=== PATIENT | male | born 1960 | race Caucasian/White ===

== ENCOUNTER 2022-05-14 09:39 | Inpatient (IN) ==
[2022-05-08 13:39] LABS: Basophils # (Auto) 0.02 K/mcL (0.00-0.30); Basophils % (Auto) 0.4 % (0.0-2.0); Eosinophils % (Auto) 1.8 % (0.0-7.0); Hematocrit 40.3 % (40.1-51.0); Hemoglobin 12.8 g/dL (13.7-17.5); Lymphocytes # (Auto) 0.73 K/mcL (1.50-4.80); Lymphocytes % (Auto) 13.1 % (15.5-49.0); Mean Cell Volume 97.3 fL (80.0-100.0); Mean Corpuscular HGB Conc 31.8 g/dL (31.0-36.0); Mean Platelet Volume 9.8 fL (7.4-10.4); Monocytes # (Auto) 0.46 K/mcL (0.10-0.90); Monocytes % (Auto) 8.2 % (1.0-12.0); Neutrophils % (Auto) 76.3 % (38.0-78.0); Platelet Count 192 K/mcL (140-440); RBC 4.14 M/mcL (4.63-6.08); Red Cell Distribution Width 12.7 % (11.5-14.5); WBC 5.6 K/mcL (4.5-11.0)
[2022-05-08 13:42] LABS: INR 0.9 (0.9-1.1); Prothrombin Time 13.1 sec (11.9-14.5)
[2022-05-08 13:48] LABS: Blood Urea Nitrogen 27 mg/dL (6-20); Calcium 9.4 mg/dL (8.6-10.4); Carbon Dioxide 25 mmol/L (22-30); Chloride 101 mmol/L (96-108); Glomerular Filtration Rate 30; Glucose 95 mg/dL (70-105)
[2022-05-08 14:15] LABS: Estimated Average Glucose(eAG) 88 mg/dL; Hemoglobin A1C 4.7 % Hgb (4.0-6.0)
--- NOTE | 2022-05-10 07:47 | EKG ---
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
[~2022-05-14 09:39] MED LIST: IPRATROPIUM/ALBUTEROL 3 ML AMPUL.NEB NEB PRN; SCOPOLAMINE 1 PATCH PATCH TOPICAL PRN; ceFAZolin 3 GM in DEXTROSE 5% IN WATER 50 ML IV SCH
--- NOTE | 2022-05-14 13:37 | General Surg History&Physical ---
HPI History of Present Illness Patient information: Note initiated : 05/14/22 at 1:35 pm Service Date, if different from initiated Date: [] Patient: Juanjose Patel 62 y/o M admitted on 05/14/22 for Robotic Assisted Hiatal Hernia Repair with Nicholas. Chief Complaint: [] Chief complaint: Patient presents for scheduled robotic assisted hiatal hernia repair History of present illness: This is a pleasant 61-year-old gentleman with a long history of a hiatal hernia. In the past he has been worked up with an EGD, diagnosed with H. pylori and placed on H. pylori treatment. He also had ulcers identified which were taken care of with medication. He reports that he has had an esophageal swallow in the past and is not sure if he has had manometry or pH probe. He recently underwent a CT scan which showed that his hiatal hernia was larger than it has been in the past. He reports over the last several years the pain and pressure in his chest is gotten worse, he gets acid reflux up to the level of the pharynx and is here to discuss possible surgical repair. He denies any fevers chills nausea or vomiting at this time. Patient is here today to follow-up EGD which showed a large hiatal hernia with Geremias ulcers and manometry which showed decent drainage of esophagus with good motility. No changes since patient was seen in clinic [facility] All Active Problems Anemia in stage 4 chronic kidney disease (Chronic) Bronchitis (Chronic) Subconjunctival hemorrhage (Chronic) Blood pressure decreased (Chronic) Bradycardia (Chronic) CKD (chronic kidney disease), stage IV (Chronic) Umbilical hernia (Chronic) Ventral hernia (Chronic) Pneumonia (Chronic) MANSFIELD (dyspnea on exertion) (Chronic) SOB (shortness of breath) (Chronic) Right hip pain (Chronic) Generalized anxiety disorder (Chronic) Methamphetamine dependence (Chronic) Tobacco dependence (Chronic) Hemoptysis (Chronic) Pain in right knee (Chronic) Wart (Chronic) Gout (Chronic) Anemia (Chronic) Alcohol dependence (Chronic) Legal problem (Chronic) Primary erectile dysfunction (Chronic) Plantar wart (Chronic) Hammer toe (Chronic) Pain in right foot (Chronic) Onychomycosis (Chronic) Ankle pain (Chronic) Essential hypertension (Chronic) Diverticular disease of colon (Chronic 05/16/14) Polyp of colon (Chronic) Nocturia (Chronic) Insomnia (Chronic) Herpes simplex (Chronic) Chronic hepatitis C (Chronic) Gouty arthropathy (Chronic) GERD (gastroesophageal reflux disease) (Chronic) Gastritis (Chronic) Esophagitis (Chronic) Mild depression (Chronic) PTSD (post-traumatic stress disorder) (Chronic) Pes planus (Chronic) Idiopathic peripheral neuropathy (Chronic) Hyperlipidemia (Chronic) Mild edema (Chronic) Hip joint stiffness, bilateral (Chronic) Arthritis (Chronic) Vitamin D deficiency (Chronic) Renal osteodystrophy (Chronic) Erectile dysfunction (Chronic) Skin lesion (Chronic) Nicotine dependence (Chronic) Other stimulant dependence, in remission (Chronic) Actinic keratosis (Chronic) Low back pain (Chronic) 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) Other specified abdominal hernia with obstruction, without gangrene (Chronic) Other idiopathic peripheral autonomic neuropathy (Chronic) Other seasonal allergic rhinitis (Chronic) Other specified depressive episodes (Chronic) Other viral warts (Chronic) Pain in unspecified ankle and joints of unspecified foot (Chronic) Pain in unspecified hip (Chronic) Problems related to other legal circumstances (Chronic) Tinea unguium (Chronic) Hyperparathyroidism (Chronic) Localized edema due to fluid overload (Chronic) BPH loc w urin obs/LUTS (Acute) Urinary retention with incomplete bladder emptying (Acute) Diaphragmatic hernia (Chronic) Scrotal skin lesion (Acute) Medical History Actinic keratosis Alcohol dependence Anemia Ankle pain Arthritis Blood pressure decreased Bradycardia Chronic hepatitis C CKD (chronic kidney disease), stage IV Diaphragmatic hernia Diverticular disease of colon (05/16/14) MANSFIELD (dyspnea on exertion) Erectile dysfunction Esophagitis Grade B Essential hypertension Gastritis Generalized anxiety disorder GERD (gastroesophageal reflux disease) Gout Gouty arthropathy Hammer toe Left foot, acquired Hemoptysis Herpes simplex Hip joint stiffness, bilateral Hyperlipidemia Idiopathic peripheral neuropathy Insomnia Legal problem Low back pain Methamphetamine dependence Mild depression Mild edema lower extremities 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 Nicotine dependence Nocturia Onychomycosis Other idiopathic peripheral autonomic neuropathy Other seasonal allergic rhinitis Other specified abdominal hernia with obstruction, without gangrene Other specified depressive episodes Other stimulant dependence, in remission Other viral warts Pain in right foot Pain in right knee Pain in unspecified ankle and joints of unspecified foot Pain in unspecified hip Pes planus Plantar wart Pneumonia Polyp of colon 05/20/14 hyperplastic polyp Primary erectile dysfunction Doing adequately on daily tadalafil with bolus sildenafil Problems related to other legal circumstances PTSD (post-traumatic stress disorder) Renal osteodystrophy Right hip pain Skin lesion Recurrent questionable lesion left inner groin, will schedule for biopsy SOB (shortness of breath) Subconjunctival hemorrhage Tinea unguium Tobacco dependence Umbilical hernia Ventral hernia Vitamin D deficiency Wart Surgical History History of bunionectomy of right great toe History of colonoscopy (~2018) 2013 History of esophagogastroduodenoscopy (EGD) (04/12/20) History of foot surgery right x2 - right collapsed arch, left hallux fusion History of hammer toe correction right History of open heart surgery (~2017) 2017 aortic valve History of open reduction and internal fixation (ORIF) procedure left forearm; right hip History of shoulder surgery bilateral History of surgery on arm left forearm plating History of umbilical hernia repair Family History Grandfather Lung cancer Hypertension Social History marital status: education level: college 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, 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 branch: [employer] smoking status: Former smoker alcohol intake frequency: does not drink substance use type: does not use MEDS/ALLERGIES Home Medications and Allergies Home Medications Medication Instructions Recorded Confirmed Type albuterol sulfate 90 mcg/actuation 1 puff inhalation QID PRN ALLERGIES 12/20/20 05/14/22 History aerosol inhaler aspirin 81 mg tablet,delayed 81 mg PO QDAY 12/20/20 05/14/22 History release duloxetine 30 mg capsule,delayed 30 mg PO QDAY 12/20/20 05/14/22 History release gabapentin 600 mg tablet 600 mg PO TID 12/20/20 05/14/22 History losartan 50 mg tablet 50 mg PO QDAY 12/20/20 05/14/22 History omeprazole 20 mg capsule,delayed 20 mg PO BID 12/20/20 05/14/22 History release ferrous gluconate 324 mg (37.5 mg 324 mg PO QDAY 03/29/21 05/14/22 History iron) tablet fluticasone propionate 50 1 spray intranasal BID PRN 03/29/21 05/14/22 History mcg/actuation nasal ALLERGIES spray,suspension multivitamin with minerals 1 cap PO QDAY 03/29/21 05/14/22 History furosemide 20 mg tablet (Lasix) 20 mg PO QAM 05/04/21 05/14/22 History nortriptyline 25 mg capsule 25 mg PO QHS 05/04/21 05/14/22 History amlodipine 5 mg tablet 5 mg PO QDAY #90 tabs 08/06/21 05/14/22 Rx metoprolol succinate 50 mg 25 mg PO QDAY 08/06/21 05/14/22 History tablet,extended release 24 hr empagliflozin 10 mg tablet 10 mg PO QAM #90 tabs 10/22/21 05/14/22 Rx tamsulosin 0.4 mg capsule 0.4 mg PO QHS #90 caps 01/01/22 05/14/22 Rx trazodone 100 mg tablet 100 mg PO QHS 01/28/22 05/14/22 History apixaban [Eliquis] 5 mg PO BID 04/04/22 05/14/22 History allopurinol 100 mg tablet 100 mg PO QDAY 05/08/22 05/14/22 History atorvastatin 10 mg tablet 10 mg PO QDAY 05/08/22 05/14/22 History cholecalciferol (vitamin D3) 50 50 mcg PO QDAY 05/08/22 05/14/22 History mcg (2,000 unit) tablet cyclobenzaprine 10 mg tablet 10 mg PO TIDP PRN Pain 05/08/22 05/14/22 History diltiazem HCl 120 mg 120 mg PO QDAY 05/08/22 05/14/22 History capsule,extended release 24 hr docosahexaenoic acid (dha)-epa 1 cap PO BID 05/08/22 05/14/22 History capsule omega-3 fatty acids-vitamin E 1 cap PO BID 05/08/22 05/14/22 History 1,000 mg capsule sildenafil 100 mg tablet 100 mg PO QDAY PRN Erectile 05/08/22 05/14/22 History Dysfunction sucralfate 1 gram tablet 2 g PO BID 05/08/22 05/14/22 History tadalafil 5 mg tablet 5 mg PO PRN PRN Sexual Activity 05/08/22 05/14/22 History Allergies Allergy/AdvReac Type Severity Reaction Status Date / Time vancomycin Allergy Severe Redness of Verified 04/04/22 09:47 Skin lisinopril Allergy Unknown Unknown Verified 04/04/22 09:47 Physical Examination Vital Signs Vital signs: Temp Pulse BP Pulse Ox O2 Del Method 98.4 F 80 148/89 97 05/14/22 11:00 05/14/22 11:00 05/14/22 11:00 05/14/22 11:00 05/14/22 11:00 General physical appearance General physical exam: well developed, well nourished and no distress Eyes Eye exam: PERRL and normal ocular movement ENT ENT exam: normal pinna, normal nares, normal mucosa, no hearing loss and no congestion Head Head exam IM: Present atraumatic and normocephalic Neck Neck exam: no masses, no bruits, trachea midline, no lymphadenopathy and no venous distension Cardiovascular Cardiovascular exam IM: Present normal rate and rhythm Respiratory Respiratory exam: normal expansion, normal respiratory effort, clear to percussion and clear to auscultation Abdomen Abdomen: Present soft, non tender and bowel sounds Hernia: Present none Genitourinary Genitourinary (Male): Present normal penis with no external lesions Rectum Rectum: Present normal sphincter tone, no hemorrhoids, no tenderness, no masses and no bleeding Integumentary Integumentary: Present no rash, no growths and no abnormal pigmentation Neurologic Neurologic: Present normal coordination and normal sensation Musculoskeletal Musculoskeletal: Present normal gait and normal posture Psychiatric Psychiatric: Present oriented to time, oriented to person, oriented to place, speech is normal and memory intact Results Labs Result diagrams: 05/08/22 10:10 05/08/22 10:10 Labs: All other labs normal. A/P Assessment and plan (1) GERD (gastroesophageal reflux disease): Status: Chronic (2) Diaphragmatic hernia: Status: Chronic Plan Patient is here for robotic assisted Nicholas fundoplication. Postoperative diet, details of procedure reviewed with patient. All patient's questions are answered and he desires to continue. Time Spent With Patient Time: Total time spent is greater than 50% in coordination of care (as documented) at patient's floor/unit and/or counseling patient:
[2022-05-14] MEDS ORDERED: fentaNYL 100 MCG/2 ML VIAL IV ONE (14:00)
[2022-05-14] MEDS ORDERED: KETAMINE 50 MG/ML Syringe (ANEST) IV ONE (14:00)
[2022-05-14] MEDS ORDERED: ROCURONIUM 10 MG/ML ML IV ONE (14:00)
[2022-05-14] MEDS ORDERED: MIDAZOLAM 5 MG/5 ML VIAL ONE (14:00)
[2022-05-14] MEDS ORDERED: SUGAMMADEX SODIUM 200 MG/2 ML VIAL IV ONE (14:00)
[2022-05-14] MEDS ORDERED: DEXAMETHASONE 10 MG/ML VIAL ONE (14:00)
[2022-05-14] MEDS ORDERED: ONDANSETRON 4 MG/2 ML VIAL ONE (14:00)
[2022-05-14] MEDS ORDERED: METOPROLOL TARTRATE 5 MG/5 ML VIAL IV ONE (14:00)
[2022-05-14] MEDS ORDERED: PROPOFOL 200 MG/20 ML VIAL IV ONE (14:00)
[2022-05-14] MEDS ORDERED: LIDOCAINE HCL/PF 100 MG/5 ML SYRINGE IV ONE (14:00)
[2022-05-14] MEDS ORDERED: GLYCOPYRROLATE 0.2 MG/ML VIAL IV ONE (14:00)
[2022-05-14] MEDS ORDERED: METHOCARBAMOL 1,000 MG/10 ML VIAL IV PRN (15:19)
[2022-05-14] MEDS ORDERED: fentaNYL 100 MCG/2 ML VIAL IV PRN (15:19)
[2022-05-14] MEDS ORDERED: METOCLOPRAMIDE 10 MG/2 ML VIAL IV PRN (15:19)
[2022-05-14] MEDS ORDERED: IPRATROPIUM/ALBUTEROL 3 ML AMPUL.NEB NEB PRN (15:19)
[2022-05-14] MEDS ORDERED: PROMETHAZINE 25 MG/ML VIAL IV PRN (15:19)
[2022-05-14] MEDS ORDERED: ONDANSETRON 4 MG/2 ML VIAL IV PRN ×2 (15:19→15:33)
[2022-05-14] MEDS ORDERED: HYDROmorphone 0.5 MG/0.5 ML SYRINGE IV PRN (15:19)
[2022-05-14] MEDS ORDERED: LACTATED RINGERS 250 ML IV PRN (15:19)
[2022-05-14] MEDS ORDERED: ACETAMINOPHEN 1,000 MG/100 ML BAG IV ONE (15:19)
[2022-05-14] MEDS ORDERED: MEPERIDINE 25 MG/ML VIAL IV PRN (15:19)
[2022-05-14] MEDS ORDERED: KETOROLAC 30 MG/ML VIAL IV PRN (15:19)
[2022-05-14] MEDS ORDERED: LABETALOL 5 MG/ML ML IV PRN (15:19)
[2022-05-14] MEDS ORDERED: METOPROLOL TARTRATE 5 MG/5 ML VIAL IV PRN (15:19)
[2022-05-14] MEDS ORDERED: NALOXONE HCL 0.4 MG/ML VIAL IV PRN (15:19)
[2022-05-14] MEDS ORDERED: LACTATED RINGERS 1,000 ML IV SCH (15:30)
[2022-05-14] MEDS ORDERED: IBUPROFEN 600 MG TABLET PO PRN (15:33)
[2022-05-14] MEDS ORDERED: ACETAMINOPHEN 325 MG TABLET PO PRN (15:33)
--- NOTE | 2022-05-14 15:33 | Operative Note ---
Brief Operative Note Date of procedure: 05/14/22 Pre-op diagnosis: Large hiatal hernia, gastroesophageal reflux disease Post-op diagnosis: same Procedure: Attempted hiatal hernia repair robotic assisted Grafts/Implants: No Anesthesia: GETA Findings: Difficult anatomy, unable to reduce hiatal hernia, operation stopped. Complications: none Surgeon: Ori Gilmore Estimated blood loss (cc): 25 Specimens Removed/Pathology: none sent Condition: stable Disposition: PACU Operative Note Operative Note: After all risk benefits and alternatives to the procedure were discussed with the patient at length he verbalized understanding and desire to continue with the procedure. Patient was taken main operating placed upon operative table. General esthesia was induced over endotracheal tube. Patient's prepped and draped in standard sterile surgical fashion. Surgical timeout was taken to verify patient and procedure being performed. 1% lidocaine half percent Marcaine was used for local anesthesia. A right upper quadrant incision was made in the abdominal cavity was entered under direct vision using an 8 mm Optiview trocar. Abdominal cavity was insufflated with carbon oxide vision inspection revealed no injuries. Visual inspection revealed a large amount of adhesions to the midline from a prior open mesh hernia repair. 2 left upper quadrant 8 mm trochars were able to be placed under direct vision and then the adhesions were taken down to allow an additional midline 8 mm trocar. 1 final 5 mm right upper quadrant trochars were then placed under direct vision. Patient was placed in a head up position. A liver retractor was placed to lift the liver off the hiatus and the da Kalin robot was docked in the standard fashion. Attention was turned to the hiatus where the gastro esophageal ligament was opened and this was dissected down to the right crura, at this point retraction became difficult, and I was unable to reduce the stomach back into the abdomen, NG tube was unable to be passed into the intra-abdominal stomach, multiple attempts were made to reduce the stomach and get to a place where they occur could be dissected safely. After multiple attempts I felt that I could not safely progress with the crural dissection and decided to stop the operation at this point. 1 retraction tear in the stomach was repaired with interrupted 3-0 Vicryl sutures and then the da Kalin robot was undocked after hemostasis was assured. CO2 and trochars and the liver retractor were all removed under direct vision. Trocar sites were inspected for hemostasis. Skin edges were then closed with interrupted 4 Monocryl sutures and skin glue dressings were applied. Patient was awakened from general anesthesia transferred postanesthesia care unit awake alert in good condition.
[2022-05-14] MEDS ORDERED: LIDOCAINE 1% 20 ML, BUPIVACAINE W/EPI 0.5% 20 ML SQ ONE (15:56)
[2022-05-14] MEDS ORDERED: SENNOSIDES 1 TABLET PO SCH (21:00)
[2022-05-14] MEDS: 0.9 % SODIUM CHLORIDE 10 ML SYRINGE IV SCH (21:08)
[2022-05-14] MEDS: DOCUSATE SODIUM 100 MG CAPSULE PO SCH (21:19)
[2022-05-14] MEDS ORDERED: GABAPENTIN 300 MG CAPSULE PO ONE (21:45)
[2022-05-14] MEDS: oxyCODONE HCL 5 MG TABLET PO PRN (21:46)
[2022-05-14] MEDS ORDERED: traZODone HCL 100 MG TABLET PO SCH (21:50)
[2022-05-14] MEDS ORDERED: traZODone HCL 50 MG TABLET ONE (21:55)
[2022-05-15] MEDS: oxyCODONE HCL 5 MG TABLET PO PRN (02:19)
[2022-05-15] MEDS: 0.9 % SODIUM CHLORIDE 10 ML SYRINGE IV SCH (05:37)
[2022-05-15] MEDS: DOCUSATE SODIUM 100 MG CAPSULE PO SCH (08:12)
--- NOTE | 2022-05-15 08:24 | Discharge Summary ---
Discharge Provider Provider IMPORTANT FOLLOW-UP INFORMATION FOR PCP: Patient information: Note initiated : 05/15/22 at 8:24 am Service Date, if different from initiated Date: [] Patient: Juanjose Patel 62 y/o M admitted on 05/14/22 for Robotic Assisted Hiatal Hernia Repair with Nicholas. Chief Complaint: [] Date of admission: 05/14/22 09:39 Discharge date: 05/15/22 Primary care physician: Martinez Davis COURSE Hospital Course Hospital course: Patient was admitted for robotic assisted hiatal hernia repair, the surgery was unsuccessful. Postoperatively patient is done well with minimal pain. Discharge diagnosis: Status post robotic assisted exploration. Time Spent with Patient Time attestation: Total time spent providing and/or coordinating discharge services: Time spent: Less than 30 minutes Physical Examination Vital Signs Vital signs: Temp Pulse Resp BP Pulse Ox O2 Del Method O2 Flow Rate 97.6 F 75 20 148/88 90 2 05/15/22 07:22 05/15/22 07:22 05/15/22 07:22 05/15/22 07:22 05/15/22 07:22 05/15/22 07:22 05/15/22 07:20 Discharge Plan Patient/Caregiver Discharge Instructions Activity: increase activity as tolerated Diet: Regular Diet Activity Restrictions/Additional Instructions: Resume activity as tolerated. May resume showering as tolerated. Prescriptions: Continued empagliflozin 10 mg tablet 10 mg PO QAM Qty: 90 3RF aspirin 81 mg tablet,delayed release (DR/EC) 81 mg PO QDAY duloxetine 30 mg capsule,delayed release(DR/EC) 30 mg PO QDAY losartan 50 mg tablet 50 mg PO QDAY albuterol sulfate 90 mcg/actuation HFA aerosol inhaler 1 puff inhalation QID PRN (Reason: ALLERGIES) ferrous gluconate 324 mg (37.5 mg iron) tablet 324 mg PO QDAY fluticasone propionate 50 mcg/actuation spray,suspension 1 spray intranasal BID PRN (Reason: ALLERGIES) Rx Instructions: administer into each nostril multivitamin with minerals Capsule 1 cap PO QDAY apixaban [Eliquis] 5 mg PO BID nortriptyline 25 mg capsule 25 mg PO QHS amlodipine 5 mg tablet 5 mg PO QDAY Qty: 90 3RF gabapentin 600 mg tablet 600 mg PO TID omeprazole 20 mg capsule,delayed release(DR/EC) 20 mg PO BID furosemide [Lasix] 20 mg tablet 20 mg PO QAM metoprolol succinate 50 mg tablet extended release 24 hr 50 mg PO QDAY trazodone 100 mg Tablet 100 mg PO QHS allopurinol 100 mg Tablet 100 mg PO QDAY atorvastatin 10 mg Tablet 10 mg PO QDAY cyclobenzaprine 10 mg Tablet 10 mg PO TIDP PRN (Reason: Pain) sucralfate 1 gram Tablet 2 g PO BID diltiazem HCl 120 mg Capsule,Extended Release 24hr 120 mg PO QDAY docosahexaenoic acid-epa Capsule 1 cap PO BID cholecalciferol (vitamin D3) 50 mcg (2,000 unit) Tablet 50 mcg PO QDAY tadalafil 5 mg tablet 5 mg PO PRN PRN (Reason: Sexual Activity) sildenafil 100 mg Tablet 100 mg PO DAILYP PRN (Reason: Erectile Dysfunction) Rx Instructions: administer 30 minutes to 4 hours before activity omega-3 fatty acids-vitamin E 1,000 mg Capsule 1 cap PO BID tamsulosin 0.4 mg capsule 0.4 mg PO QHS Qty: 90 3RF Follow Up Plan Follow up with: Ori Gilmore MD [Physician] - 05/22/22 11:15 am Patient Disposition: Home, Self-Care Discharge Orders: Discharge Order (Routine); Ordered 05/15/22 Ordered By: Ori Gilmore Pending Pending Pending: Resuscitation Status Resuscitate (Full Code) Diet Regular Diet Start FriMay 15 08 Acetaminophen (Acetaminophen 325 Mg Tablet) 650 mg PO Q6HP PRN; Protocol PRN Reason: Per Pain Protocol/Fever > 101 Last Admin: 05/14/22 23:27 Dose: 650 mg Documented By: TONIING Allopurinol (Allopurinol 100 Mg Tablet) 100 mg PO QDAY [facility] Last Admin: 05/15/22 08:12 Dose: 100 mg Documented By: FMF Amlodipine Besylate (Amlodipine 5 Mg Tablet) 5 mg PO QDAY [facility] Last Admin: 05/15/22 08:12 Dose: 5 mg Documented By: FMF Atorvastatin Calcium (Atorvastatin 10 Mg Tablet) 10 mg PO QDAY [facility] Last Admin: 05/15/22 08:12 Dose: 10 mg Documented By: FMF Diltiazem HCl (Diltiazem 120 Mg Cap.Xl.24h) 120 mg PO QDAY [facility] Last Admin: 05/15/22 08:12 Dose: 120 mg Documented By: FRANCISCO Docusate Sodium (Docusate Sodium 100 Mg Capsule) 100 mg PO BID [facility] Last Admin: 05/15/22 08:12 Dose: 100 mg Documented By: Admin: 05/14/22 21:19 Dose: 100 mg Documented By: ARTURO Furosemide (Furosemide 20 Mg Tablet) 20 mg PO QAM [facility] Last Admin: 05/15/22 08:12 Dose: 20 mg Documented By: FRANCISCO Gabapentin (Gabapentin 300 Mg Capsule) 600 mg PO TID [facility] Last Admin: 05/15/22 08:11 Dose: 600 mg Documented By: FRANCISCO Losartan Potassium (Losartan 50 Mg Tablet) 50 mg PO QDAY [facility] Last Admin: 05/15/22 08:12 Dose: 50 mg Documented By: FRANCISCO Metoprolol Succinate (Metoprolol Succinate 50 Mg Tab.Xl.24h) 25 mg PO QDAY [facility] Last Admin: 05/15/22 08:12 Dose: 25 mg Documented By: FRANCISCO Oxycodone HCl (Oxycodone Hcl 5 Mg Tablet) 5 mg PO Q4HP PRN; Protocol PRN Reason: Per Pain Protocol Last Admin: 05/15/22 02:19 Dose: 5 mg Documented By: Admin: 05/14/22 21:46 Dose: 5 mg Documented By: ARTURO Senna (Sennosides 1 Tablet) 2 tab PO HS [facility] Last Admin: 05/14/22 21:19 Dose: 2 tab Documented By: ARTURO Sodium Chloride (0.9 % Sodium Chloride 10 Ml Syringe) 10 ml IV Q8 [facility] Last Admin: 05/15/22 05:37 Dose: 10 ml Documented By: Admin: 05/14/22 21:08 Dose: Not Given Documented By: ARTURO Trazodone HCl (Trazodone Hcl 100 Mg Tablet) 100 mg PO QHS [facility] Last Admin: 05/14/22 22:00 Dose: 100 mg Documented By: ARTURO Shift Summary 05/15/22 04:35 Shift Summary by Lesli Patterson Primary Diagnosis: Hiatal hernia repair with Nicholas fundoplication Registration Status: Date of Surgery (if applicable): 05/14 Pertinent Medical Dx/Issue(s): Bradycardia; anemia stage 4 CKD; diverticular disease of the colon; GERD; Gout; depression; PTSD; asthma; arthritis; hip and foot surgeries Med management (antibiotics, diuretics, BP): Gabapentin and trazodone given this shift Skin/Wound Care: Abd lap sites x5 with closed with Dermabond Vital Signs with Trends: BPs 92/60-96/63 (Pt states baseline bps) all other VSS on 2L NC Pain management (acute vs. chronic): Acute pain; Oxycodone x2 and Tylenol x1 with desired results; Pt states that he is unable to take Ibuprofen d/t poor kidney function; Ice and splinting with pillows has also been very effective to manage pain on this shift with desired results. Neuro/Mental Status: A&O x4; Pleasant and cooperative Urinary Elimination Device: Voids via urinal Urinary output greater than 30mL/hr? Yes Date of last BM: 05/14; No BM on this shift Lines/Tubes: 20g IV to RFA SL Activity: Up SBA with cane; ambulated 676 ft in the hallway Recommendations/questions for MD: Discharge Plan (needs, disposition, etc): Surgery ended when surgeon was unable to reduce the hernia. Dr Gilmore in touch with surgeons in [place] to see if they complete the surgery. Initialized on 05/15/22 04:35 - END OF NOTE
[2022-05-15] MEDS ORDERED: ALLOPURINOL 100 MG TABLET PO SCH (09:00)
[2022-05-15] MEDS ORDERED: ATORVASTATIN 10 MG TABLET PO SCH (09:00)
[2022-05-15] MEDS ORDERED: FUROSEMIDE 20 MG TABLET PO SCH (09:00)
[2022-05-15] MEDS ORDERED: DILTIAZEM 120 MG CAP.XL.24H PO SCH (09:00)
[2022-05-15] MEDS ORDERED: amLODIPine 5 MG TABLET PO SCH (09:00)
[2022-05-15] MEDS ORDERED: LOSARTAN 50 MG TABLET PO SCH (09:00)
[2022-05-15] MEDS ORDERED: GABAPENTIN 300 MG CAPSULE PO SCH (09:00)
[2022-05-15] MEDS ORDERED: METOPROLOL SUCCINATE 50 MG TAB.XL.24H PO SCH (09:00)
[2022-05-15] MEDS ORDERED: FLU VACC QS2022-23(6MOS UP)/PF 60 MCG/0.5 ML SYRINGE IM ONE (10:00)
[2022-05-15] MEDS ORDERED: NORTRIPTYLINE 25 MG CAPSULE PO SCH (21:00)
[2022-05-15] MEDS ORDERED: traZODone HCL 100 MG TABLET PO SCH (21:00)
== END 2022-05-15 10:10 | disposition home or self-care (01) | DRG 327 ==
LOC: MEDSUR 09:39
PROVIDERS: ADMIT Surgery; ATTEND Surgery